=== PATIENT | female | born 2000 | race Two or more races ===

== ENCOUNTER 2024-08-19 02:38 | Emergency (ER) | payer SELFPAY ==
[~2024-08-19] VITALS: Ht 160 cm; Wt 100.0 kg
[2024-08-19 02:45] VITALS: O2SAT 98
[2024-08-19 03:24] VITALS: O2SAT 97
[2024-08-19] MEDS ORDERED: IBUP-2030 MT (03:51)
[2024-08-19] MEDS ORDERED: AMOX1TAB16 MT (03:51)
[2024-08-19] MEDS ORDERED: CIPHCO RIGHT EAR (03:51)
[2024-08-19] MEDS: KETOROLAC 30MG/ML VIAL IM ONE (04:10)
[2024-08-19 04:25] VITALS: BP 139/85; PULSE 70; RESP 16; TEMP 36.94740
== END 2024-08-19 05:39 | disposition home or self-care (01) ==
LOC: ER 02:55
DX: H60.501 Unspecified acute noninfective otitis externa, right ear (principal); H66.91 Otitis media, unspecified, right ear
CPT/HCPCS: 99283; 81025; 96372; J1885